=== PATIENT | male | born 1985 | race Caucasian/White ===

== ENCOUNTER 2020-08-27 17:12 | Emergency (ER) | payer OTHER, SELFPAY ==
[2020-08-27 17:14] VITALS: BP 129/102; PULSE 74; RESP 16; TEMP 36.4; O2SAT 100; BMI 24.4
--- NOTE | 2020-08-27 17:44 | XR_ITS ---
PROCEDURE INFORMATION: Exam: XR Left Shoulder Exam date and time: 08/27/2020 5:44 PM Age: 35 years old Clinical indication: Patient HX: Left shoulder pain x 40 min. Per patient he feels like it popped out of place and then it popped it back in place TECHNIQUE: Imaging protocol: XR Left shoulder. Views: 2 or more views. COMPARISON: No relevant prior studies available. FINDINGS: Bones/joints: Cortical irregularity and linear lucency through the inferior aspect of the glenoid, concerning for a fracture versus a Bankart lesion. No other acutely displaced fractures are identified. There is no evidence of dislocation. No aggressive osseous lesions. Soft tissues: There is no significant soft tissue swelling. Visualized chest is unremarkable. IMPRESSION: Findings at the inferior aspect of the glenoid are highly concerning for a fracture versus a Bankart lesion. Consider correlation with CT or MRI if clinically warranted.
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
[2020-08-27 18:16] VITALS: BP 127/90; PULSE 60; O2SAT 96
[2020-08-27 18:39] VITALS: BP 127/90; PULSE 69; RESP 16; TEMP 36.4; O2SAT 99
== END 2020-08-27 18:40 | disposition home or self-care (01) ==
PROVIDERS: Emergency Provider Emergency Medicine
DX: S43.492A Other sprain of left shoulder joint, initial encounter (principal); S43.005A Unspecified dislocation of left shoulder joint, initial encounter; Y04.0XXA Assault by unarmed brawl or fight, initial encounter
CPT/HCPCS: 73030; 99282